=== PATIENT | female | born 1945 | race American Indian/Alaskan Native ===

== ENCOUNTER 2017-12-29 18:11 | Emergency (ER) | payer MEDICARE ==
[2017-12-29 18:20] VITALS: BP 141/77
[2017-12-29] MEDS ORDERED: MOTRIN PO ONE (19:51)
[2017-12-29] MEDS ORDERED: BENADRYL PO ONE (19:51)
--- NOTE | 2017-12-29 19:54 | Emergency Department Report ---
ED General Adult HPI - General Chief complaint: Animal Bite Stated complaint: INSECT BITE Time Seen by Provider: 12/29/17 19:45 Source: patient Mode of arrival: Ambulatory Limitations: No Limitations - History of Present Illness Initial comments: 72-year-old after an Nepalese female comes in reporting that her last index finger has swelling and burning. Patient reports that she was outside pulling weeds out of her flower garden and something bit her on her finger. Patient reports she did not take anything for the pain or swelling. She has history of hypertension, no known drug allergies, and takes her blood pressure medicine. -: days(s) (1) Location: upper extremity Severity scale (0 -10): 8 Quality: burning, aching Consistency: constant Worsens with: none Associated Symptoms: denies other symptoms - Related Data Previous Rx's Medication Instructions Recorded Last Taken Type Losartan [Cozaar] 50 mg PO QDAY #30 tablet 08/22/15 Unknown Rx traMADol [Ultram 50 MG tab] 50 mg PO Q4HR PRN #20 tablet 08/22/15 Unknown Rx Ibuprofen [Motrin 600 MG tab] 600 mg PO Q8H #15 tablet 12/29/17 Unknown Rx Allergies Allergy/AdvReac Type Severity Reaction Status Date / Time No Known Allergies Allergy Verified 08/22/15 11:23 ED Review of Systems ROS: Stated complaint: INSECT BITE Other details as noted in HPI Skin: other ED Past Medical Hx - Past Medical History Previous Medical History?: Yes Hx Hypertension: Yes - Surgical History Past Surgical History?: Yes Hx Appendectomy: Yes Additional Surgical History: partial hysterectomy - Social History Smoking Status: Current Every Day Smoker Substance Use Type: Alcohol - Medications Home Medications: Home Medications Medication Instructions Recorded Confirmed Last Taken Type Losartan [Cozaar] 50 mg PO QDAY #30 tablet 08/22/15 Unknown Rx traMADol [Ultram 50 MG tab] 50 mg PO Q4HR PRN #20 tablet 08/22/15 Unknown Rx Ibuprofen [Motrin 600 MG tab] 600 mg PO Q8H #15 tablet 12/29/17 Unknown Rx ED Physical Exam - General Limitations: No Limitations General appearance: alert, in no apparent distress - Head Head exam: Present: atraumatic, normocephalic - Eye Eye exam: Present: normal appearance - ENT ENT exam: Present: mucous membranes moist - Neck Neck exam: Present: normal inspection - Respiratory Respiratory exam: Present: normal lung sounds bilaterally. Absent: respiratory distress - Cardiovascular Cardiovascular Exam: Present: regular rate, normal rhythm. Absent: systolic murmur, diastolic murmur, rubs, gallop - GI/Abdominal GI/Abdominal exam: Present: soft, normal bowel sounds - Extremities Exam Extremities exam: Present: normal inspection - Back Exam Back exam: Present: normal inspection - Neurological Exam Neurological exam: Present: alert, oriented X3 - Skin Skin exam: Present: other (left hand index finger mild swelling at the tip nonerythematous mild tenderness to palpate.) ED Course Vital Signs 12/29/17 18:15 Temperature 97.9 F Pulse Rate 68 Respiratory 18 Rate Blood Pressure 141/77 O2 Sat by Pulse 99 Oximetry ED Medical Decision Making - Medical Decision Making Patient's been evaluated with his provider fast track. I discussed the patient will give her some Motrin and Benadryl. Discussed the patient is finger persistently stays swollen or gets worse to follow-up with her primary care provider or the emergency room. Patient verbalized understanding Critical care attestation.: If time is entered above; I have spent that time in minutes in the direct care of this critically ill patient, excluding procedure time. ED Disposition Clinical Impression: Swelling of left index finger Disposition: DC-01 TO HOME OR SELFCARE Is pt being admited?: No Does the pt Need Aspirin: No Condition: Stable Additional Instructions: Take pain medication as prescribed and take over the counter Benadryl for swelling. Follow up with your primary care provider if symptoms persist or get worst. Prescriptions: Ibuprofen [Motrin 600 MG tab] 600 mg PO Q8H #15 tablet Referrals: HOPE AMBRIZ MD [Primary Care Provider] - 3-5 Days
--- NOTE | 2017-12-29 20:10 | Emergency Department Report ---
Blank Doc - Documentation Documentation: Patient is a 72-year-old black female who was possibly bitten by a bug on the finger. Patient has some stinging pain. Patient did have [id number] by me and I agree with all documentation is Nicolas the ANGIE.
== END 2017-12-29 20:15 | disposition home or self-care (01) ==
LOC: ED 18:11
DX: M79.89 Other specified soft tissue disorders (principal); I10 Essential (primary) hypertension; F17.200 Nicotine dependence, unspecified, uncomplicated; Z90.711 Acquired absence of uterus with remaining cervical stump
CPT/HCPCS: 99282

== ENCOUNTER 2021-02-10 02:40 | Emergency (ER) | payer MEDICARE ==
[2021-02-10] MEDS ORDERED: ASPIRIN 325 MG TAB PO ONE (03:00)
--- NOTE | 2021-02-10 03:53 | XRay Report ---
CHEST 2 VIEWS 0310 INDICATION / CLINICAL INFORMATION: chest pain, cough COMPARISON: None available. FINDINGS: SUPPORT DEVICES: None. HEART / MEDIASTINUM: No significant abnormality. LUNGS / PLEURA: Mild evidence of COPD is seen. No obvious acute infiltrates are noted. No pneumothora x. ADDITIONAL FINDINGS: No significant additional findings. IMPRESSION: No significant acute abnormality Signer Name: Cristian Martin MD Signed: 02/10/2021 3:48 AM Workstation Name: [id number]
[2021-02-10] MEDS ORDERED: predniSONE 20 MG TAB PO ONE (05:12)
--- NOTE | 2021-02-10 05:14 | Event Note ---
ED Screening Note Date of service: 02/10/21 Time: 05:10 ED Screening Note: Patient is a 75 yo AA female with a h/o heavy tobacco abuse and HTN who presents to the ED with c/o acute onset persistent nasal and sinus congestion, sore throat, cough with yellow phlegm for the last 2 days, worse in the last 12 hours. Patient denies dyspnea, nausea, vomiting, chest pain, abdominal pain, diaphoresis, neck pain, fever, chills, diarrhea or dizziness and syncope. This initial assessment/diagnostic orders/clinical plan/treatment(s) is/are subject to change based on patients health status, clinical progression and re- assessment by fellow clinical providers in the ED. Further treatment and workup at subsequent clinical providers discretion. Patient/guardian urged not to elope from the ED as their condition may be serious if not clinically assessed and managed. Initial orders include: EKG, CXR, CMP, Troponin, CBC
[2021-02-10 05:16] LABS: Basophils % (Auto) 0.3 % (0.0-1.8); Eosinophils # (Auto) 0.2 K/mm3 (0.0-0.4); Eosinophils % (Auto) 1.3 % (0.0-4.3); Hematocrit 41.2 % (30.3-42.9); Hemoglobin 14.1 gm/dl (10.1-14.3); Lymphocytes # (Auto) 1.5 K/mm3 (1.2-5.4); Lymphocytes % (Auto) 11.5 % (13.4-35.0); Mean Corpuscular HGB Conc 34 % (30-34); Mean Corpuscular Volume 98 fl (79-97); Monocytes # (Auto) 0.7 K/mm3 (0.0-0.8); Monocytes % (Auto) 5.3 % (0.0-7.3); Platelet Count 308 K/mm3 (140-440); Red Blood Count 4.19 M/mm3 (3.65-5.03); Red Cell Distribution Width 15.4 % (13.2-15.2)
[2021-02-10 05:43] LABS: Alanine Aminotransferase 14 units/L (7-56); Blood Urea Nitrogen 7 mg/dL (7-17); Calcium 9.3 mg/dL (8.4-10.2); Hemolysis Index 0
[2021-02-10 05:48] LABS: BUN/Creatinine Ratio 10
[2021-02-10] MEDS ORDERED: IPRATROPIUM 0.02% NEBU 2.5 ML IH ONE (07:40)
[2021-02-10] MEDS ORDERED: ALBUTEROL 2.5 MG/3 ML NEBU IH ONE (07:40)
[2021-02-10 07:43] VITALS: BP 180/80
--- NOTE | 2021-02-10 07:46 | Emergency Department Report ---
HPI - General Chief Complaint: Chest Pain Time Seen by Provider: 02/10/21 07:33 - HPI HPI: Room 3 The patient is a 75-year-old female present with a chief complaint of shortness of breath. The patient states for the past 2 days she has had shortness of breath and a cough productive of yellow sputum. Patient admits to a dry throat but denies history of fever. Patient admits to occasional rhinorrhea after coughing. Patient states she has not received any Covid vaccinations. ED Past Medical Hx - Past Medical History Previous Medical History?: Yes Hx Hypertension: Yes - Surgical History Past Surgical History?: Yes Hx Appendectomy: Yes Additional Surgical History: partial hysterectomy, appendectomy - Family History Family history: no significant - Social History Smoking Status: Current Some Day Smoker Substance Use Type: None (Denies illicit drug use), Alcohol (Occasional) - Medications Home Medications: Home Medications Medication Instructions Recorded Confirmed Last Taken Type Losartan [Cozaar] 50 mg PO QDAY #30 tablet 08/22/15 Unknown Rx traMADoL [Ultram 50 MG tab] 50 mg PO Q4HR PRN #20 tablet 08/22/15 Unknown Rx Ibuprofen [Motrin 600 MG tab] 600 mg PO Q8H #15 tablet 12/29/17 Unknown Rx Albuterol Mdi (or & Nicu Only) 2 puff IH QID PRN #8.5 gram 02/10/21 Unknown Rx [ProAir HFA Inhaler] Azithromycin [Zithromax Z-FREDRICK] 0 mg PO DAILY #6 tab 02/10/21 Unknown Rx Benzonatate [Tessalon Perles] 100 mg PO Q8HR #30 capsule 02/10/21 Unknown Rx Prednisone [predniSONE 10 mg 10 mg PO .TAPER #1 tab.ds.pk 02/10/21 Unknown Rx (6-Day Pack, 21 Tabs)] ED Review of Systems ROS: Stated complaint: CHEST CONGESTION;VITALIY Other details as noted in HPI Constitutional: denies: fever Eyes: denies: eye pain ENT: other (Dry throat) Respiratory: cough, shortness of breath Cardiovascular: denies: chest pain Endocrine: no symptoms reported Gastrointestinal: denies: abdominal pain Genitourinary: denies: dysuria Musculoskeletal: denies: back pain Neurological: denies: headache Physical Exam - Physical Exam Physical Exam: GENERAL: The patient is well-developed well-nourished female lying on stretcher not appearing to be in acute distress. [] HEENT: Normocephalic. Atraumatic. Extraocular motions are intact. Patient has moist mucous membranes. NECK: Supple. Trachea midline CHEST/LUNGS: Occasional rhonchi diffusely. There is no respiratory distress noted. HEART/CARDIOVASCULAR: Regular. There is no tachycardia. There is no gallop rub or murmur. ABDOMEN: Abdomen is soft, nontender. Patient has normal bowel sounds. There is no abdominal distention. SKIN: There is no rash. There is no edema. There is no diaphoresis. NEURO: The patient is awake, alert, and oriented. The patient is cooperative. The patient has no focal neurologic deficits. The patient has normal speech MUSCULOSKELETAL: There is no evidence of acute injury. ED Medical Decision Making - Lab Data Result diagrams: 02/10/21 04:49 02/10/21 04:49 Laboratory Tests 02/10/21 02/10/21 02/10/21 04:49 04:49 06:59 WBC 13.1 H RBC 4.19 Hgb 14.1 Hct 41.2 MCV 98 H MCH 34 H MCHC 34 RDW 15.4 H Plt Count 308 Lymph % (Auto) 11.5 L Kane % (Auto) 5.3 Eos % (Auto) 1.3 Baso % (Auto) 0.3 Lymph # (Auto) 1.5 Kane # (Auto) 0.7 Eos # (Auto) 0.2 Baso # (Auto) 0.0 Seg Neutrophils % 81.6 H Seg Neutrophils # 10.7 H Sodium 141 Potassium 4.3 Chloride 104.2 Carbon Dioxide 25 Anion Gap 16 BUN 7 Creatinine 0.7 Estimated GFR > 60 BUN/Creatinine Ratio 10 Glucose 98 Calcium 9.3 Total Bilirubin 0.60 AST 16 ALT 14 Alkaline Phosphatase 106 Troponin T < 0.010 < 0.010 Total Protein 6.9 Albumin 4.0 Albumin/Globulin Ratio 1.4 - EKG Data -: EKG Interpreted by Me EKG shows normal: sinus rhythm Rate: normal - EKG Data When compared to previous EKG there are: previous EKG unavailable Interpretation: other (No ischemic changes) - Radiology Data Radiology results: report reviewed (Chest x-ray), image reviewed (Chest x-ray) interpreted by me: Chest x-ray-no focal infiltrates, no pneumothorax. No foreign body seen [facility] [address] [place] [address] XRay Report Signed Patient: SANDRINE FABIAN MR#: [id number] : 1945 Acct:[id number] Age/Sex: 75 / F ADM Date: 02/10/21 Loc: ED Attending Dr: Ordering Physician: JANUSZ FINK MD Date of Service: 02/10/21 Procedure(s): XR chest routine 2V Accession Number(s): [id number] cc: ED MD DANAE Fluoro Time In Minutes: CHEST 2 VIEWS 0310 INDICATION / CLINICAL INFORMATION: chest pain, cough COMPARISON: None available. FINDINGS: SUPPORT DEVICES: None. HEART / MEDIASTINUM: No significant abnormality. LUNGS / PLEURA: Mild evidence of COPD is seen. No obvious acute infiltrates are noted. No pneumothorax. ADDITIONAL FINDINGS: No significant additional findings. IMPRESSION: No significant acute abnormality Signer Name: Cristian Martin MD Signed: 02/10/2021 3:48 AM Workstation Name: [id number] Transcribed By: GJ Dictated By: Cristian Martin MD Electronically Authenticated By: Cristian Martin MD Signed Date/Time: 02/10/21347 DD/ 6 TD/TT: Print Cancel - Differential Diagnosis Bronchitis, pneumonia, COVID-19, COPD Critical care attestation.: If time is entered above; I have spent that time in minutes in the direct care of this critically ill patient, excluding procedure time. ED Disposition Clinical Impression: Acute bronchitis Disposition: DC-01 TO HOME OR SELFCARE Is pt being admited?: No Does the pt Need Aspirin: No Condition: Stable Instructions: Acute Bronchitis (ED), Acute Bronchitis, Adult, [id number], Chronic Obstructive Pulmonary Disease, [id number], Smoking Tobacco Info rmation, Adult Additional Instructions: Return to the emergency department should you develop worsening symptoms, inability to tolerate food or liquids, high fever or any other concerns Prescriptions: Prednisone [predniSONE 10 mg (6-Day Pack, 21 Tabs)] 10 mg PO .TAPER #1 tab.ds.pk Albuterol Mdi (or & Nicu Only) [ProAir HFA Inhaler] 2 puff IH QID PRN #8.5 gram PRN Reason: Shortness Of Breath Benzonatate [Tessalon Perles] 100 mg PO Q8HR #30 capsule Azithromycin [Zithromax Z-FREDRICK] 0 mg PO DAILY #6 tab Referrals: JORDY LLOYD MD [Staff Physician] - 3-5 Days YEYO KIMBROUGH MD [Staff Physician] - 3-5 Days Time of Disposition: 10:06
--- NOTE | 2021-02-12 10:26 | Electrocardiograph Report ---
[facility] Test Date: 2021-02-10 Test Time: 02:55:45 Pat Name: SANDRINE FABIAN Department: Room: Gender: F Overhead Irrigator: ANNALEE : 1945 Requested By: LOGAN STEPHENSON Order Number: [id number] Reading MD: Fabian Figueroa Measurements Intervals [place] Rate: 78 P: 46 NC: 152 QRS: 69 QRSD: 71 T: 64 QT: 362 QTc: 412 Interpretive Statements Sinus rhythm Otherwise unremarkable. No previous ECG available for comparison Electronically Signed On 02-12-2021 10:26:20 EDT by Fabian Figueroa
== END 2021-02-10 10:29 | disposition home or self-care (01) ==
LOC: ED 02:40
DX: J20.9 Acute bronchitis, unspecified (principal); I10 Essential (primary) hypertension; F17.200 Nicotine dependence, unspecified, uncomplicated; Z90.49 Acquired absence of other specified parts of digestive tract; Z90.710 Acquired absence of both cervix and uterus; Z72.89 Other problems related to lifestyle; Z98.890 Other specified postprocedural states; Z79.899 Other long term (current) drug therapy
CPT/HCPCS: 36415; 71046; 80053; 84484; 85025; 93005; 94640; 99284; J7512; 94644